=== PATIENT | male | born 1980 | race Caucasian/White ===

== ENCOUNTER 2018-03-06 10:38 | Emergency (ER) | payer OTHER ==
[2018-03-06 10:44] VITALS: O2SAT 96
[2018-03-06] MEDS ORDERED: Sodium Chloride 0.9% 1,000 ML IV ONE (10:55)
--- NOTE | 2018-03-06 10:59 | C.PDOC ---
History Of Present Illness 37 year old male patient presents to the ER with c/o fever that started this morning. Associated symptoms includes headache and one episode of diarrhea. Patient notes he had soup that his made last night, no one else ate it but him. Patient denies nausea, vomiting and abdominal pain. Chief Complaint (Nursing): Fever History Per: Patient History/Exam Limitations: no limitations Onset/Duration Of Symptoms: Hrs Current Symptoms Are (Timing): Still Present Associated Symptoms: Fever, Diarrhea, Other (headache). denies: Nausea, Vomiting Past Medical History Reviewed: Historical Data, Nursing Documentation, Vital Signs Vital Signs: Last Vital Signs Temp 99.1 F 03/06/18 13:53 Pulse 88 03/06/18 13:53 Resp 16 03/06/18 13:53 BP 143/96 H 03/06/18 13:53 Pulse Ox 96 03/06/18 14:11 Family History: States: No Known Family Hx - Social History Hx Alcohol Use: Yes Hx Substance Use: No - Immunization History Hx Tetanus Toxoid Vaccination: No Hx Influenza Vaccination: No Hx Pneumococcal Vaccination: No Review Of Systems Except As Marked, All Systems Reviewed And Found Negative. Constitutional: Positive for: Fever Gastrointestinal: Positive for: Diarrhea. Negative for: Nausea, Vomiting, Abdominal Pain Neurological: Positive for: Headache Physical Exam - Physical Exam Appears: Well, Non-toxic, No Acute Distress Skin: Normal Color, Warm, Dry Head: Atraumatic, Normacephalic Eye(s): bilateral: Normal Inspection, PERRL, EOMI Ear(s): Bilateral: Normal Oral Mucosa: Moist Throat: Normal Neck: Normal ROM, Supple Chest: Symmetrical, No Deformity Cardiovascular: Rhythm Regular Respiratory: Normal Breath Sounds Gastrointestinal/Abdominal: Soft, No Tenderness Extremity: Normal ROM (x4) Neurological/Psych: Oriented x3, Normal Speech Gait: Steady ED Course And Treatment - Laboratory Results Result Diagrams: 03/06/18 11:20 03/06/18 11:20 O2 Sat by Pulse Oximetry: 96 (RA) Pulse Ox Interpretation: Normal - Other Rad CXR X-Ray: Read By Radiologist Interpretation: Accession No. : [id number]. Patient Name / ID : WYATT BARRY / [id number]. Exam Date : 03/06/2018 11:28:09 ( Approved ). Study Comment : Sex / Age : M / [id number]. Creator : Ana Diana V. Dictator : Ana Diana V. Stock Wetter : Driver License Reviewing Officer : Ana Diana V. Approver2 : Report Date : 03/06/2018 13:33:11. My Comment : . Date of service: 03/06/2018. PROCEDURE: CHEST RADIOGRAPH, 1 VIEW. HISTORY: abd pain. COMPARISON: None available. FINDINGS : LUNGS: Clear. PLEURA: No pneumothorax or pleural fluid seen. CARDIOVASCULAR: Probable mild cardiomegaly -even considering technique. OSSEOUS STRUCTURES: No significant abnormalities. VISUALIZED UPPER ABDOMEN: Normal. OTHER FINDINGS: None. IMPRESSION: Probable mild cardiomegaly -even considering technique Medical Decision Making Medical Decision Making: Impression: viral symptoms: fever, headache and diarrhea Plans: -- blood work -- CXR -- pepcid -- IV fluids -- Tylenol -- Zofran injection -- stool cx -- UA Reassess: Patient is resting comfortably. Toleration PO. Patient is afebrile at this time. Abdomen remains soft and non-tender. Patient is advised to f/u with PCP in 1-2 days. The pt is feeling better and he's afebrile, headache improves. He wants to go home. Disposition - Disposition Referrals: [facility] at [facility] [place] [Outside] [facility] [Outside] [facility] [place] [Outside] Disposition: HOME/ ROUTINE Disposition Time: 13:55 Condition: GOOD Prescriptions: Acetaminophen [Tylenol 325mg tab] 650 mg PO Q4 #20 tab Instructions: [place] Diet Forms: [facility] (Danish) - Clinical Impression Clinical Impression: Enteritis - Scribe Statement The provider has reviewed the documentation as recorded by the Scribe Osman Do Provider Attestation: All medical record entries made by the Scribe were at my direction and personally dictated by me. I have reviewed the chart and agree that the record accurately reflects my personal performance of the history, physical exam, medical decision making, and the department course for this patient. I have also personally directed, reviewed, and agree with the discharge instructions and disposition.
[2018-03-06] MEDS ORDERED: Sodium Chloride 0.9% 1,000 ML ONE (11:17)
[2018-03-06 11:25] LABS: BASO # 0.1 K/uL (0.0-0.2); BASO % 0.9 % (0.0-2.0); EOS % 0.2 % (0.0-4.0); HEMOGLOBIN 16.3 g/dL (12.0-18.0); LYMPH % 11.9 % (20.0-40.0); MEAN CELL VOLUME 87.6 fL (80.0-94.0); MEAN CORPUSCULAR HEMOGLOBIN 30.2 pg (27.0-31.0); MEAN CORPUSCULAR HGB CONC 34.5 g/dL (33.0-37.0); MEAN PLATELET VOLUME 9.4 fL (7.2-11.7); MONO # 1.1 K/uL (0.0-0.8); MONO % 6.5 % (0.0-10.0); NEUT # 13.7 K/uL (1.8-7.0); NEUT % 80.5 % (50.0-75.0); NRBC % 0.7 % (0.0-2.0); RBC 5.38 Mil/uL (4.40-5.90); RED CELL DISTRIBUTION WIDTH 13.1 % (11.5-14.5)
[2018-03-06 11:26] LABS: WHITE BLOOD COUNT 17.1 K/uL (4.8-10.8)
[2018-03-06 11:39] LABS: ALB/GLOB RATIO 1.5 (1.0-2.1); ALBUMIN 4.6 g/dL (3.5-5.0); ALT/SGPT 50 U/L (21-72); AST/SGOT 25 U/L (17-59); BLOOD UREA NITROGEN 11 mg/dL (9-20); CALCIUM 9.4 mg/dl (8.6-10.4); GFR NON-AFRICAN AMERICAN > 60; LIPASE 57 U/L (23-300)
[2018-03-06 11:58] LABS: URINE BILIRUBIN NEGATIVE (NEGATIVE); URINE CLARITY Clear (Clear); URINE COLOR YELLOW (YELLOW); URINE GLUCOSE (UA) NEGATIVE (Normal)
[2018-03-06 11:59] LABS: SQUAMOUS EPITHIAL 1 /hpf (0-5); URINE BLOOD 1+ (NEGATIVE); URINE LEUKOCYTE ESTERASE NEGATIVE Leu/uL (Negative); URINE PROTEIN 1+ mg/dL (NEGATIVE); URINE UROBILINOGEN 0.2 mg/dL (0.2-1.0)
--- NOTE | 2018-03-06 13:35 | RAD ---
Date of service: 03/06/2018 PROCEDURE: CHEST RADIOGRAPH, 1 VIEW HISTORY: abd pain COMPARISON: None available. FINDINGS: LUNGS: Clear. PLEURA: No pneumothorax or pleural fluid seen. CARDIOVASCULAR: Probable mild cardiomegaly -even considering technique OSSEOUS STRUCTURES: No significant abnormalities. VISUALIZED UPPER ABDOMEN: Normal. OTHER FINDINGS: None. IMPRESSION: Probable mild cardiomegaly -even considering technique.
[2018-03-06 13:54] VITALS: BP 143/96; PULSE 88; RESP 16; TEMP 99.1
== END 2018-03-06 13:56 | disposition home or self-care (01) ==
LOC: C.ER 10:38
DX: K52.9 Noninfective gastroenteritis and colitis, unspecified (principal)
CPT/HCPCS: 71045; 80053; 81001; 83690; 85025; 96361; 96374; 96375; 99284; J2405; J7030